=== PATIENT | male | born 1945 | race Caucasian/White ===

== ENCOUNTER → 2022-10-26 08:31 | Outpatient (CLI) | payer MEDICARE, SELFPAY ==
--- NOTE | ~2022-10-26 | CT_ITS ---
Non-contrast CT scan of the Abdomen and Pelvis Clinical indication: Abdominal aortic aneurysm Technique: 2.5 mm axial scans were obtained through the abdomen and pelvis without intravenous or or al contrast. Dose reduction technique was used on this scan by utilizing automated exposure control a nd iterative reconstruction technique. The dose-length product (DLP) was 396.69 mGy-cm. Findings: Images through the lung bases reveal extensive subpleural reticulation and minimal periphe ral interstitial thickening at the lung bases. There is no evidence of renal or ureteral calculi. The kidneys and the ureters are nondilated. The liver, spleen, pancreas, and adrenals appear normal. Multiple small gallstones are present. Infra renal abdominal aortic aneurysm measures 3.9 cm in maximum diameter. There are atherosclerotic calcif ications of the aorta. There is no evidence of bowel obstruction. Normal appendix. Images through the pelvis were performed. There is no evidence of ascites or lymphadenopathy. Urinary bladder unremarkable. No pelvic mass seen. Impression: 0.9 cm infrarenal abdominal aortic aneurysm. Cholelithiasis. Mild bibasilar chronic interstitial pulmonary disease. Reviewed, dictated and finalized at [facility]. Impression: 0.9 cm infrarenal abdominal aortic aneurysm. Cholelithiasis. Mild bibasilar chronic interstitial pulmonary disease.
== END ==
PROVIDERS: PCP Internal Medicine; Visit Provider Internal Medicine
DX: I71.40 Abdominal aortic aneurysm, without rupture, unspecified (principal); K80.20 Calculus of gallbladder without cholecystitis without obstruction; R91.8 Other nonspecific abnormal finding of lung field
CPT/HCPCS: 74176

== ENCOUNTER 2023-12-21 08:22 | Outpatient (CLI) | payer MEDICARE, SELFPAY ==
--- NOTE | ~2023-12-21 | US_ITS ---
EXAMINATION: US aorta DATE: 12/21/2023 08:44 INDICATION: Abdominal aortic aneurysm without rupture. TECHNIQUE: Grayscale, color Doppler, and pulsed Doppler images of the aorta and common iliac arteries were obtained. COMPARISON: CT abdomen and pelvis 10/26/2022 FINDINGS: The aorta demonstrates a 4.2 cm fusiform infrarenal aneurysm.. The right common iliac artery measures 1.5 cm. The left common iliac artery measures 2.2 cm. IMPRESSION: 1. 4.2 cm fusiform infrarenal aortic aneurysm, which measured 4.0 cm on 10/26/2022. Reviewed, dictated and finalized at location [facility]. IMPRESSION: 1. 4.2 cm fusiform infrarenal aortic aneurysm, which measured 4.0 cm on 10/27/19 23.
== END 2023-12-21 08:23 ==
PROVIDERS: PCP Internal Medicine; Visit Provider Internal Medicine
DX: I71.43 Infrarenal abdominal aortic aneurysm, without rupture (principal)
CPT/HCPCS: 76775